=== PATIENT | male | born 1985 | race African-American/Black ===

== ENCOUNTER 2018-03-22 18:29 | Emergency (ER) | payer SELFPAY ==
[~2018-03-22] VITALS: Ht 177.8 cm; Wt 85.7 kg
[2018-03-22 20:00] LABS: BASOPHIL % 0.3 % (0-2); PLATELET COUNT 248 x10^3mcL (130-400); RED CELL DISTRIBUTION WIDTH 13.9 % (11.5-14.5)
[2018-03-22 20:19] LABS: CALCIUM 8.2 mg/dL (8.5-10.1); CARBON DIOXIDE 26.4 mmol/L (21-32); CHLORIDE SERUM 103 mmol/L (98-107); GFR1 > 60 mL/min; GLUCOSE SERUM 91 mg/dL (74-106); SODIUM SERUM 140 mmol/L (136-145)
[2018-03-22 20:23] LABS: ALBUMIN 3.7 g/dL (3.4-5.0); ALKALINE PHOSPHATASE 68 U/L (46-116); ALT/SGPT 48 U/L (16-63); AST/SGOT 34 U/L (15-37); BILIRUBIN TOTAL 0.2 mg/dL (0.20-1.00); CHOLESTEROL 162 mg/dL (<200); LIPASE 205 IU/L (73-393); TOTAL PROTEIN, SERUM 7.4 g/dL (6.4-8.2); TRIGLYCERIDES 66 mg/dL (<150)
[2018-03-22 20:27] LABS: CHOLESTEROL/HDL RATIO 2.2; HDL CHOLESTEROL 74 mg/dL (40-60)
[2018-03-22 20:35] LABS: T3 TOTAL 0.91 ng/mL
[2018-03-22 20:49] LABS: FREE T4 0.79 ng/dL (0.76-1.46); FREE THYROXINE INDEX 1.7 ug/dL (1.4-4.5); T4(THYROXINE) 5.3 ug/dL (4.7-13.3)
[2018-03-22 22:34] VITALS: BP 144/91
== END 2018-03-22 22:34 | disposition home or self-care (01) ==
LOC: ED 18:29
PROVIDERS: Specialist
DX: G89.29 Other chronic pain (principal); M79.674 Pain in right toe(s); I10 Essential (primary) hypertension
CPT/HCPCS: 83880; 84439; J1885; J7030